=== PATIENT | female | born 1950 | race Caucasian/White ===

== ENCOUNTER 2017-02-14 14:06 | Emergency (ER) | payer MEDICARE, MEDICAID ==
[~2017-02-14] VITALS: Ht 154.9 cm; Wt 71.0 kg
[2017-02-14] MEDS ORDERED: ACETAMINOPHEN 325MG TABLET PO ONE (15:45)
[2017-02-14] MEDS ORDERED: TETANUS, DIPHTHERIA, PERTUSSIS VAC/PF 0.5ML (>7YR OLD) IM ONE (15:45)
[2017-02-14] MEDS ORDERED: LIDOCAINE HCL 1% 20ML VIAL (Pyxis) INJ MC ONE (15:45)
[2017-02-14] MEDS ORDERED: BACITRACIN ZINC OINT UDPKT TOP ONE ×2 (15:45→19:30)
[2017-02-14] MEDS ORDERED: TRAMADOL 50MG TABLET PO ONE (18:45)
[2017-02-14 19:45] VITALS: BP 137/47
== END 2017-02-14 19:45 | disposition home or self-care (01) ==
LOC: ER 15:04
DX: S01.81XA Laceration without foreign body of other part of head, initial encounter (principal); M53.3 Sacrococcygeal disorders, not elsewhere classified; I10 Essential (primary) hypertension; E11.9 Type 2 diabetes mellitus without complications; K57.30 Diverticulosis of large intestine without perforation or abscess without bleeding; E78.00 Pure hypercholesterolemia, unspecified; W08.XXXA Fall from other furniture, initial encounter; Y93.89 Activity, other specified; Y92.89 Other specified places as the place of occurrence of the external cause; Z88.8 Allergy status to other drugs, medicaments and biological substances; Z23 Encounter for immunization
CPT/HCPCS: 12001; 70450; 72192; 90471; 90715; 99284; J3490

== ENCOUNTER 2017-02-16 16:07 | Emergency (ER) | payer MEDICARE, MEDICAID ==
[~2017-02-16] VITALS: Ht 165.1 cm; Wt 105.0 kg
[2017-02-16 16:15] VITALS: BP 157/66
== END 2017-02-16 19:03 | disposition home or self-care (01) ==
LOC: ER 16:07
DX: Z04.8 Encounter for examination and observation for other specified reasons (principal); E11.9 Type 2 diabetes mellitus without complications; E78.00 Pure hypercholesterolemia, unspecified; I10 Essential (primary) hypertension
CPT/HCPCS: 99281